=== PATIENT | female | born 1990 | race Caucasian/White ===

== ENCOUNTER 2023-06-04 02:40 | Emergency (ER) | payer MEDICAID ==
[~2023-06-04] VITALS: Ht 157.5 cm; Wt 65.8 kg
[2023-06-04 02:46] VITALS: BP 137/89; PULSE 101; RESP 16; TEMP 97; O2SAT 100
[2023-06-04] MEDS ORDERED: IBUP-2213 PO (04:15)
[2023-06-04] MEDS ORDERED: AMOX875T3 PO (04:15)
[2023-06-04] MEDS: IBUPROFEN 600 MG TAB PO ONE (04:37)
[2023-06-04] MEDS: AMOXICILLIN 500 MG CAP PO ONE (04:37)
[2023-06-04] MEDS: ACETAMINOPHEN EXTRA STRENGTH 500 MG TAB PO ONE (04:38)
[2023-06-04 05:38] VITALS: BP 114/70; PULSE 87; RESP 20; TEMP 97.6; O2SAT 100
== END 2023-06-04 05:38 | disposition home or self-care (01) ==
LOC: MED 02:40
DX: H66.91 Otitis media, unspecified, right ear (principal); E11.9 Type 2 diabetes mellitus without complications; Z79.899 Other long term (current) drug therapy
CPT/HCPCS: 99284